=== PATIENT | male | born 1930 | race Caucasian/White ===

== ENCOUNTER 2018-06-27 11:45 | Inpatient (IN) | payer MEDICARE, OTHER ==
[2018-06-27 12:22] LABS: ARTERIAL BLOOD GAS HCO3 12.7 mmol/L (21-28); ARTERIAL BLOOD GAS O2 SAT 99.3 % (95-98); ARTERIAL BLOOD GAS PCO2 25 mm/Hg (35-45); ARTERIAL BLOOD GAS PH 7.22 (7.35-7.45); ARTERIAL BLOOD GAS PO2 342 mm/Hg (80-100)
[2018-06-27 12:29] LABS: ALB/GLOB RATIO 1.2 (1.0-2.1); ALBUMIN 3.6 g/dL (3.5-5.0); ALT/SGPT 43 U/L (21-72); AST/SGOT 82 U/L (17-59); BLOOD UREA NITROGEN 27 mg/dL (9-20); CALCIUM 8.7 mg/dl (8.6-10.4); GFR NON-AFRICAN AMERICAN 36
[2018-06-27 12:41] LABS: B-TYPE NATRIURETIC PEPTIDE 10400 pg/mL (0-900)
--- NOTE | 2018-06-27 12:55 | CP.PCM.CON ---
<Yosvany Corea - Last Filed: 06/27/18 17:56> History of Present Illness - History of Present Illness History of Present Illness: ICU Consult Note for Dr. Brian This is a 88 y o male with PMhx CHF, HTN, HLD, CVA (with resolvement of symptoms), s/p pacemaker (recently replaced 4 y ago), b/l carotid stenosis, hypothryoidism, prostate ca s/p tx in 2007, who presented to the ED [facility] s/p cardiac arrest. Reason for ICU consult was s/p cardiac arrest. Most of history obtained from family due to pts current clinical status. Per family, pt was not feeling well when he woke up this am, stated he felt short of breath, and was slurring his speech. Pt stated at time that he felt fine and went with family to his Cardiologists office, Dr. Perez for his scheduled appt. Family states that Dr. Perez examined pt and instructed that he go straight to the ED for further treatment. While pts family was driving pt to ED, pt suddenly became unresponsive in back seat of car. Pts family immediately pulled car to side of road and called 911. EMS came within 1 min to scene and initiated CPR and gave 2 shocks in field. Pt additionally arrested as per staff in ED after arrival, and ROSC was achieved again. Pt received epi x2, amiodarone x2, shock administered x4. On my exam in the ED pt was in A-fib on cardiac rhythm strip. Further ROS unobtainable due to pts current clinical status. Central line placed in ED. Pt admitted to ICU for further monitoring. Per family, they report that pt had cardiac arrest 2 years ago and was admitted to [facility] for 4 days for work-up, was told the reason for the episode was due to his heart failure. PMhx: as noted above PSurgHx: s/p pacemaker placement (recently replaced 4 y ago), s/p seeding for prostate ca Allergies: NKDA Home meds: Amiodarone 200 mg daily, Dutasteride 0.5 mg daily, Tamsulosin 0.4 mg daily, Lasix 20 mg daily, Pravastatin 40 mg daily, Synthroid 50 mcg daily, Entresto 24-26 mg daily, Niacin 1000 mg daily, Toprol XL 50 mg daily Fam hx: denies Soc hx: denies smoking, EtOH or illicit drug use PMD: Dr. Chambers Primary Live Out Nanny: Dr. Perez Pharmacy: [facility] Pharm[facility], [address] [place] Review of Systems - Review of Systems Systems not reviewed;Unavailable: Intubated Past Patient History - Past Social History Smoking Status: Never Smoked - CARDIAC Hx Heart Attack: Yes Hx Pacemaker: Yes - GENITOURINARY/GYNECOLOGICAL Hx Prostate Cancer: Yes - PSYCHIATRIC Hx Substance Use: No - SURGICAL HISTORY Hx Surgeries: Yes Other/Comment: PPM and Prostate Seed - ANESTHESIA Hx Anesthesia: Yes Hx Anesthesia Reactions: No Meds Allergies/Adverse Reactions: Allergies Allergy/AdvReac Type Severity Reaction Status Date / Time No Known Allergies Allergy Verified 06/27/18 11:47 - Medications Medications: Current Medications Norepinephrine Bitartrate 4 mg (/ Sodium Chloride) 254 mls @ 38.1 mls/hr IV .Q6H40M PRN; Protocol PRN Reason: TITRATE PER MD ORDER Physical Exam - Constitutional Appears: Non-toxic, No Acute Distress - Head Exam Head Exam: ATRAUMATIC, NORMOCEPHALIC - Eye Exam Eye Exam: EOMI, Normal appearance, PERRL - ENT Exam ENT Exam: Mucous Membranes Moist - Respiratory Exam Respiratory Exam: Clear to Auscultation Bilateral, NORMAL BREATHING PATTERN. absent: Rales, Rhonchi, Wheezes - Cardiovascular Exam Cardiovascular Exam: Irregular Rhythm, +S1, +S2. absent: Gallop, Rubs, Systolic Murmur - GI/Abdominal Exam GI & Abdominal Exam: Normal Bowel Sounds, Soft. absent: Distended, Organomegaly, Tenderness - Extremities Exam Extremities exam: Positive for: normal capillary refill, pedal pulses present. Negative for: pedal edema - Neurological Exam Additional comments: Intubated - Skin Skin Exam: Dry, Intact, Warm Results - Labs Result Diagrams: 06/27/18 12:55 06/27/18 12:08 Labs: Laboratory Results - last 24 hr 06/27/18 06/27/18 06/27/18 11:47 12:08 12:16 Puncture Site Fem/l pCO2 25 L pO2 342 H HCO3 12.7 L ABG pH 7.22 L ABG Total CO2 11.0 L ABG O2 Saturation 99.3 H ABG Base Excess -15.8 L Tristian Test Na ABG Potassium 4.1 A-a O2 Difference 340.0 Respiratory Index 1.0 Glucose 237 H Lactate 8.2 H* Mechanical Rate 14 FiO2 100.0 Tidal Volume 500 PEEP 5 Crit Value Called To Er dr jones Crit Value Called By Bryant herrera ob/gyn physician Crit Value Read Back Y Blood Gas Notified Time 1215 Sodium 140 138.0 Potassium 4.1 Chloride 112 H 107.0 Carbon Dioxide 14 L Anion Gap 19 BUN 27 H Creatinine 1.8 H Est GFR ( Amer) 44 Est GFR (Non-Af Amer) 36 POC Glucose (mg/dL) 182 H Random Glucose 168 H D Calcium 8.7 Total Bilirubin 0.9 AST 82 H ALT 43 Alkaline Phosphatase 80 Troponin I < 0.0120 NT-Pro-B Natriuret Pep 39926 H Total Protein 6.5 Albumin 3.6 Globulin 3.0 Albumin/Globulin Ratio 1.2 Arterial Blood Potassium 4.1 Assessment & Plan - Assessment and Plan (Free Text) Assessment: This is a 88 y o male with PMhx CHF, HTN, HLD, CVA (with resolvement of symptoms), s/p pacemaker (recently replaced 4 y ago), b/l carotid stenosis, hypothryoidism, prostate ca s/p tx in 2007, who presented to the ED [facility] s/p cardiac arrest. Reason for ICU consult is s/p cardiac arrest. Admitted to ICU for further monitoring. ABG on admission demonstrating metabolic acidosis, lactate elevated. Cardiology and Neurology consulted. CT head on admission demonstrates no acute findings. Plan to initiate Code Freeze protocol. Plan: Neuro: -Intubated currently -Hx CVA -CT head on admission: Stable unenhanced CT including diffuse cerebral atrophy, chronic microangiopathy and chronic lobar infarction L frontal lobe. No suspicious acute intracranial findings identified in the interval. No significant interval change compared to prior CT 11/08/18. -Neurology, Dr. Zaragoza, consulted, recs appreciated -Video EEG ordered -Repeat head CT tomorrow after completion of Code Freeze Cardio: -S/p Cardiac Arrest -R/o arrhythmia, heart failure, NE, hypovolemia, valvular disease as etiologies for presentation -Acidotic on admission, started on Bicarb drip -Code Freeze protocol -Pt hypotensive, A-fib noted on monitoring specialist after ROSC achieved -Currently intubated, sedation held 2/2 hypotension -Currently on Levophed, Phenylephrine and Dopamine drips -Amiodarone drip -Neg trop on admission, repeat ROMIs pending -Cardiology (Dr. Mooney) consulted, recs appreciated -S/p central line placement -BNP elevated on admission -Stat Echo ordered, f/u results -Faxed in request for pt's medical records from [facility], consent obtained from pt's at bedside -Hx CHF -Home med Entresto held on admission 2/2 hypotension -BNP elevated on admission -CXR on admission: Multiple R rib fractures identified inclulding right 4th, 5th, 6th and 7th ribs with associated trace R pneumothorax and localized chest wall/pulmonary contusion. L chest appears clear. Cardiomegaly without pulmonary vascular congestion, stable. ET tube in good apparent position with prior AICD/pacemaker unchanged. -Hx pacemaker -Pt's family to bring in pacemaker card, will contact child attendant Hx HLD -Lipid panel pending -Pravastatin held on admission Hx HTN -Home BP meds held on admission 2/2 hypotension -On pressor therapy Pulm: -Currently intubated, sedation held 2/2 hypotension -Vent settings as ordered -Presented with metabolic acidosis on admission, started on Bicarb drip -Cont to monitor GI: -NPO -No acute issues at this time Renal: -BUN/Cr 27/1.8 -Hx prostate ca s/p seeding and XRT in remission -Home meds Dutasteride, Tamsulosin held on admission -Trend I's/O's Heme: -H/H 10.5/34.3 -Leukocytosis present, may be reactive 2/2 cardiac arrest and CPR, cont to trend Endo: -Hx hypothyroidism -Synthroid held on admission -TSH ordered PPX: -SCD -GI ppx not indicated at this time -Full Code status -Palliative Care consulted re. goals of care discussion, recs appreciated. Pt seen, examined with, and plan discussed with Dr. Brian, attending physician. Yosvany Corea DO PGY-1, Process Development Manager Pager #[phone] <Shree Brian - Last Filed: 06/27/18 18:13> Meds - Medications Medications: Current Medications Norepinephrine Bitartrate 4 mg (/ Sodium Chloride) 254 mls @ 38.1 mls/hr IV .Q6H40M PRN; Protocol PRN Reason: TITRATE PER MD ORDER Last Titration: 06/27/18 15:45 Dose: 20 mcg/min, 76.2 mls/hr Amiodarone HCl 900 mg/ (Dextrose) 500 mls @ 16.67 mls/hr IV .Q24H GINI; Protocol Stop: 06/28/18 18:00 Dopamine HCl/Dextrose (Dopamine 400mg/250ml D5w) 400 mg in 250 mls @ 5.688 mls/hr IV .Q24H PRN; Protocol PRN Reason: TITRATE PER MD ORDER Last Titration: 06/27/18 15:52 Dose: 20 mcg/kg/min, 56.881 mls/hr Phenylephrine HCl 30 mg/ (Sodium Chloride) 253 mls @ 10.12 mls/hr IV .Q24H PRN; Protocol PRN Reason: TITRATE PER MD ORDER Last Titration: 06/27/18 18:01 Dose: 50 mcg/min, 25.3 mls/hr Amiodarone HCl 360 mg/ (Dextrose) 207.2 mls @ 33.3 mls/hr IV .Q6H14M GINI Stop: 06/27/18 19:00 Last Admin: 06/27/18 16:15 Dose: 33.3 mls/hr Sodium Bicarbonate 75 meq/ (Sodium Chloride) 1,075 mls @ 75 mls/hr IV .[id number] [facility] Last Admin: 06/27/18 17:29 Dose: 75 mls/hr Results - Vital Signs Recent Vital Signs: Last Vital Signs Temp 90.3 F L 06/27/18 17:20 Pulse 79 06/27/18 17:50 Resp 20 06/27/18 17:26 BP 87/47 L 06/27/18 17:48 Pulse Ox 100 06/27/18 17:55 - Labs Result Diagrams: 06/27/18 12:55 06/27/18 12:08 Labs: Laboratory Results - last 24 hr 06/27/18 06/27/18 06/27/18 11:47 12:08 12:16 WBC RBC Hgb Hct MCV MCH MCHC RDW Plt Count MPV Neut % (Auto) Lymph % (Auto) Calvert % (Auto) Eos % (Auto) Baso % (Auto) Neut # (Auto) Lymph # (Auto) Calvert # (Auto) Eos # (Auto) Baso # (Auto) PT INR APTT Puncture Site Fem/l pCO2 25 L pO2 342 H HCO3 12.7 L ABG pH 7.22 L ABG Total CO2 11.0 L ABG O2 Saturation 99.3 H ABG Base Excess -15.8 L Tristian Test Na ABG Potassium 4.1 VBG pH VBG pCO2 VBG HCO3 VBG Total CO2 VBG O2 Sat (Calc) VBG Base Excess VBG Potassium A-a O2 Difference 340.0 Respiratory Index 1.0 Glucose 237 H Lactate 8.2 H* Mechanical Rate 14 FiO2 100.0 Tidal Volume 500 PEEP 5 Crit Value Called To Er dr jones Crit Value Called By Bryant herrera ob/gyn physician Crit Value Read Back Y Blood Gas Notified Time 1215 Sodium 140 138.0 Potassium 4.1 Chloride 112 H 107.0 Carbon Dioxide 14 L Anion Gap 19 BUN 27 H Creatinine 1.8 H Est GFR ( Amer) 44 Est GFR (Non-Af Amer) 36 POC Glucose (mg/dL) 182 H Random Glucose 168 H D Calcium 8.7 Total Bilirubin 0.9 AST 82 H ALT 43 Alkaline Phosphatase 80 Troponin I < 0.0120 NT-Pro-B Natriuret Pep 88305 H Total Protein 6.5 Albumin 3.6 Globulin 3.0 Albumin/Globulin Ratio 1.2 Arterial Blood Potassium 4.1 Venous Blood Potassium RPR Titer RPR Hep Bs Antigen Hep B Core IgM Ab 06/27/18 06/27/18 06/27/18 12:55 12:55 16:38 WBC 11.1 H D RBC 3.44 L Hgb 10.5 L D Hct 34.3 L MCV 99.9 H D MCH 30.5 MCHC 30.5 L RDW 16.5 H Plt Count 108 L D MPV 9.7 Neut % (Auto) 52.0 Lymph % (Auto) 38.0 Calvert % (Auto) 10.0 Eos % (Auto) 1.0 Baso % (Auto) 0.0 Neut # (Auto) 5.8 Lymph # (Auto) 4.2 Calvert # (Auto) 1.1 H Eos # (Auto) 0.0 Baso # (Auto) 0.0 PT 18.5 H INR 1.7 APTT 45 H Puncture Site pCO2 pO2 45 HCO3 ABG pH ABG Total CO2 ABG O2 Saturation ABG Base Excess Tristian Test ABG Potassium VBG pH 7.03 L* VBG pCO2 56 VBG HCO3 11.2 VBG Total CO2 16.5 L VBG O2 Sat (Calc) 71.9 H VBG Base Excess -16.2 L VBG Potassium 4.3 A-a O2 Difference Respiratory Index Glucose 256 H Lactate 7.0 H* Mechanical Rate FiO2 100.0 Tidal Volume PEEP 5 Crit Value Called To Dr brian Crit Value Called By Sacha reyna Crit Value Read Back Y Blood Gas Notified Time 1642 Sodium 141.0 Potassium Chloride 108.0 H Carbon Dioxide Anion Gap BUN Creatinine Est GFR ( Amer) Est GFR (Non-Af Amer) POC Glucose (mg/dL) Random Glucose Calcium Total Bilirubin AST ALT Alkaline Phosphatase Troponin I NT-Pro-B Natriuret Pep Total Protein Albumin Globulin Albumin/Globulin Ratio Arterial Blood Potassium Venous Blood Potassium 4.3 RPR Titer RPR Hep Bs Antigen Hep B Core IgM Ab 06/27/18 06/27/18 17:00 17:00 WBC RBC Hgb Hct MCV MCH MCHC RDW Plt Count MPV Neut % (Auto) Lymph % (Auto) Calvert % (Auto) Eos % (Auto) Baso % (Auto) Neut # (Auto) Lymph # (Auto) Calvert # (Auto) Eos # (Auto) Baso # (Auto) PT INR APTT Puncture Site pCO2 pO2 HCO3 ABG pH ABG Total CO2 ABG O2 Saturation ABG Base Excess Tristian Test ABG Potassium VBG pH VBG pCO2 VBG HCO3 VBG Total CO2 VBG O2 Sat (Calc) VBG Base Excess VBG Potassium A-a O2 Difference Respiratory Index Glucose Lactate Mechanical Rate FiO2 Tidal Volume PEEP Crit Value Called To Crit Value Called By Crit Value Read Back Blood Gas Notified Time Sodium Potassium Chloride Carbon Dioxide Anion Gap BUN Creatinine Est GFR ( Amer) Est GFR (Non-Af Amer) POC Glucose (mg/dL) Random Glucose Calcium Total Bilirubin AST ALT Alkaline Phosphatase Troponin I NT-Pro-B Natriuret Pep Total Protein Albumin Globulin Albumin/Globulin Ratio Arterial Blood Potassium Venous Blood Potassium RPR Titer 1:2 H RPR Reactive H Hep Bs Antigen Negative Hep B Core IgM Ab Negative Attending/Attestation - Attestation I have personally seen and examined this patient.: Yes I have fully participated in the care of the patient.: Yes I have reviewed all pertinent clinical information: Yes Notes (Text): 06/27/18 18:12 Patient seen and examined 88-year-old male with extensive medical history was admitted to intensive care unit post cardiac arrest and resuscitation Started on amiodarone drip Therapeutic hypothermia On multiple pressors for hypotension/shock Echocardiogram noted with aortic stenosis Ventilator support and follow-up ABG Bicarb drip for acidosis Prognosis poor Palliative consult
[2018-06-27 13:00] LABS: MEAN CORPUSCULAR HEMOGLOBIN 30.5 pg (27.0-31.0); MEAN CORPUSCULAR HGB CONC 30.5 g/dL (33.0-37.0); MEAN PLATELET VOLUME 9.7 fL (7.2-11.7); RBC 3.44 Mil/uL (4.40-5.90); RED CELL DISTRIBUTION WIDTH 16.5 % (11.5-14.5)
[2018-06-27 13:10] LABS: HEMOGLOBIN 10.5 g/dL (12.0-18.0); INR 1.7; MEAN CELL VOLUME 99.9 fL (80.0-94.0); PROTHROMBIN TIME 18.5 SECONDS (9.7-12.2); WHITE BLOOD COUNT 11.1 K/uL (4.8-10.8)
[2018-06-27 13:50] LABS: LYMPH # 4.2 K/uL (1.0-4.3); MONO # 1.1 K/uL (0.0-0.8); NEUT # 5.8 K/uL (1.8-7.0)
--- NOTE | 2018-06-27 13:59 | CP.PCM.HP ---
<Yosvany Corea - Last Filed: 06/27/18 17:27> History of Present Illness - History of Present Illness History of Present Illness: Medicine History and Physical For Hospitalist Service, Dr. Cuevas This is a 88 y o male with PMhx CHF, HTN, HLD, CVA (with resolvement of symptoms), s/p pacemaker (recently replaced 4 y ago), b/l carotid stenosis, hypothryoidism, prostate ca s/p tx in 2007, who presented to the ED [facility] s/p cardiac arrest. Most of history obtained from family due to pts current clinical status. Per family, pt was not feeling well when he woke up this am, stated he felt short of breath, and was slurring his speech. Pt stated at time that he felt fine and went with family to his Cardiologists office, Dr. Perez for his scheduled appt. Family states that Dr. Perez examined pt and instructed that he go straight to the ED for further treatment. While pts family was driving pt to ED, pt suddenly became unresponsive in back seat of car. Pts family immediately pulled car to side of road and called 911. EMS came within 1 min to scene and initiated CPR and gave 2 shocks in field. Pt additionally arrested as per staff in ED after arrival, and ROSC was achieved again. Pt rec eived epi x2, amiodarone x2, shock administered x4. On my exam in the ED pt was in A-fib on cardiac rhythm strip. Further ROS unobtainable due to pts current clinical status. Central line placed in ED. Pt admitted to ICU for further monitoring. Per family, they report that pt had cardiac arrest 2 years ago and was admitted to [facility] for 4 days for work-up, was told the reason for the episode was due to his heart failure. PMhx: as noted above PSurgHx: s/p pacemaker placement (recently replaced 4 y ago), s/p seeding for prostate ca Allergies: NKDA Home meds: Amiodarone 200 mg daily, Dutasteride 0.5 mg daily, Tamsulosin 0.4 mg daily, Lasix 20 mg daily, Pravastatin 40 mg daily, Synthroid 50 mcg daily, Entresto 24-26 mg daily, Niacin 1000 mg daily, Toprol XL 50 mg daily Fam hx: denies Soc hx: denies smoking, EtOH or illicit drug use PMD: Dr. Chambers Primary Sales Broker: Dr. Perez Pharmacy: [facility] Pharm[facility], [place] Present on Admission - Present on Admission Any Indicators Present on Admission: No History of DVT/PE: No History of Uncontrolled Diabetes: No Urinary Catheter: No Decubitus Ulcer Present: No History Surgical Site Infection Following: None Review of Systems - Review of Systems Systems not reviewed;Unavailable: Intubated Past Patient History - Past Social History Smoking Status: Never Smoked - CARDIAC Hx Heart Attack: Yes Hx Pacemaker: Yes - GENITOURINARY/GYNECOLOGICAL Hx Prostate Cancer: Yes - PSYCHIATRIC Hx Substance Use: No - SURGICAL HISTORY Hx Surgeries: Yes Other/Comment: PPM and Prostate Seed - ANESTHESIA Hx Anesthesia: Yes Hx Anesthesia Reactions: No Meds Allergies/Adverse Reactions: Allergies Allergy/AdvReac Type Severity Reaction Status Date / Time No Known Allergies Allergy Verified 06/27/18 11:47 Physical Exam - Constitutional Appears: Non-toxic, No Acute Distress - Head Exam Head Exam: ATRAUMATIC, NORMOCEPHALIC - Eye Exam Eye Exam: Normal appearance, PERRL - ENT Exam ENT Exam: Mucous Membranes Moist - Respiratory Exam Respiratory Exam: Clear to Auscultation Bilateral, NORMAL BREATHING PATTERN. absent: Rales, Rhonchi, Wheezes - Cardiovascular Exam Cardiovascular Exam: Irregular Rhythm, +S1, +S2. absent: Gallop, Rubs, Systolic Murmur - GI/Abdominal Exam GI & Abdominal Exam: Normal Bowel Sounds, Soft. absent: Distended, Organomegaly, Tenderness - Extremities Exam Extremities exam: Positive for: normal capillary refill, pedal pulses present. Negative for: pedal edema - Neurological Exam Additional comments: Intubated - Skin Skin Exam: Dry, Intact, Warm Results - Vital Signs Recent Vital Signs: Last Vital Signs Temp Pulse 61 06/27/18 12:11 Resp BP Pulse Ox - Labs Result Diagrams: 06/27/18 12:55 06/27/18 12:08 Labs: Laboratory Results - last 24 hr 06/27/18 06/27/18 06/27/18 11:47 12:08 12:16 WBC RBC Hgb Hct MCV MCH MCHC RDW Plt Count MPV Neut % (Auto) Lymph % (Auto) [place] % (Auto) Eos % (Auto) Baso % (Auto) Neut # (Auto) Lymph # (Auto) [place] # (Auto) Eos # (Auto) Baso # (Auto) PT INR APTT Puncture Site Fem/l pCO2 25 L pO2 342 H HCO3 12.7 L ABG pH 7.22 L ABG Total CO2 11.0 L ABG O2 Saturation 99.3 H ABG Base Excess -15.8 L Tristian Test Na ABG Potassium 4.1 A-a O2 Difference 340.0 Respiratory Index 1.0 Glucose 237 H Lactate 8.2 H* Mechanical Rate 14 FiO2 100.0 Tidal Volume 500 PEEP 5 Crit Value Called To Er dr jones Crit Value Called By Bryant herrera senior clinical research associate Crit Value Read Back Y Blood Gas Notified Time 1215 Sodium 140 138.0 Potassium 4.1 Chloride 112 H 107.0 Carbon Dioxide 14 L Anion Gap 19 BUN 27 H Creatinine 1.8 H Est GFR ( Amer) 44 Est GFR (Non-Af Amer) 36 POC Glucose (mg/dL) 182 H Random Glucose 168 H D Calcium 8.7 Total Bilirubin 0.9 AST 82 H ALT 43 Alkaline Phosphatase 80 Troponin I < 0.0120 NT-Pro-B Natriuret Pep 98677 H Total Protein 6.5 Albumin 3.6 Globulin 3.0 Albumin/Globulin Ratio 1.2 Arterial Blood Potassium 4.1 06/27/18 06/27/18 12:55 12:55 WBC 11.1 H D RBC 3.44 L Hgb 10.5 L D Hct 34.3 L MCV 99.9 H D MCH 30.5 MCHC 30.5 L RDW 16.5 H Plt Count 108 L D MPV 9.7 Neut % (Auto) 52.0 Lymph % (Auto) 38.0 [place] % (Auto) 10.0 Eos % (Auto) 1.0 Baso % (Auto) 0.0 Neut # (Auto) 5.8 Lymph # (Auto) 4.2 [place] # (Auto) 1.1 H Eos # (Auto) 0.0 Baso # (Auto) 0.0 PT 18.5 H INR 1.7 APTT 45 H Puncture Site pCO2 pO2 HCO3 ABG pH ABG Total CO2 ABG O2 Saturation ABG Base Excess Tristian Test ABG Potassium A-a O2 Difference Respiratory Index Glucose Lactate Mechanical Rate FiO2 Tidal Volume PEEP Crit Value Called To Crit Value Called By Crit Value Read Back Blood Gas Notified Time Sodium Potassium Chloride Carbon Dioxide Anion Gap BUN Creatinine Est GFR ( Amer) Est GFR (Non-Af Amer) POC Glucose (mg/dL) Random Glucose Calcium Total Bilirubin AST ALT Alkaline Phosphatase Troponin I NT-Pro-B Natriuret Pep Total Protein Albumin Globulin Albumin/Globulin Ratio Arterial Blood Potassium Assessment & Plan - Assessment and Plan (Free Text) Assessment: This is a 88 y o male with PMhx CHF, HTN, HLD, CVA (with resolvement of symptoms), s/p pacemaker (recently replaced 4 y ago), b/l carotid stenosis, hypothryoidism, prostate ca s/p tx in 2007, who presented to the ED [facility] s/p cardiac arrest. Admitted to ICU for further monitoring. ABG on admission demonstrating metabolic acidosis, lactate elevated. Cardiology and Neurology consulted. CT head on admission demonstrates no acute findings. Plan to initiate Code Freeze protocol. Plan: S/p Cardiac Arrest -R/o arrhythmia, heart failure, NV, hypovolemia, valvular disease as etiologies for presentation -Acidotic on admission, started on Bicarb drip -Code Freeze protocol -Pt hypotensive, A-fib noted on pvc monitor after ROSC achieved -Currently intubated, sedation held 2/2 hypotension -Currently on Levophed, Phenylephrine and Dopamine drips -Amiodarone drip -Neg trop on admission, repeat ROMIs pending -Cardiology (Dr. Mooney) consulted, recs appreciated -S/p central line placement -BNP elevated on admission -Stat Echo ordered, f/u results -Faxed in request for pt's medical records from [facility], consent obtained from pt's at bedside Hx CHF -Home med Entresto held on admission 2/2 hypotension -BNP elevated on admission -CXR on admission: Multiple R rib fractures identified inclulding right 4th, 5th, 6th and 7th ribs with associated trace R pneumothorax and localized chest wall/pulmonary contusion. L chest appears clear. Cardiomegaly without pulmonary vascular congestion, stable. ET tube in good apparent position with prior AICD/pacemaker unchanged. Hx pacemaker -Pt's family to bring in pacemaker card, will contact garageman Hx HTN -Home BP meds held on admission 2/2 hypotension -On pressor therapy Hx hypothyroidism -Synthroid held on admission -TSH ordered Hx prostate ca s/p seeding and XRT in remission -Home meds Dutasteride, Tamsulosin held on admission Hx HLD -Lipid panel pending -Pravastatin held on admission Hx CVA -CT head on admission: Stable unenhanced CT including diffuse cerebral atrophy, chronic microangiopathy and chronic lobar infarction L frontal lobe. No suspicious acute intracranial findings identified in the interval. No significant interval change compared to prior CT 11/08/18. -Neurology, Dr. Zaragoza, consulted, recs appreciated -Video EEG ordered -Repeat head CT tomorrow after completion of Code Freeze PPX: -SCD -GI ppx not indicated at this time -Full Code status -Palliative Care consulted re. goals of care discussion, recs appreciated. Pt seen, examined with, and plan discussed with Dr. Cuevas, attending physician. Yosvany Corea DO PGY-1, [employer] Pager #[phone] <Sadi Cuevas - Last Filed: 06/27/18 17:44> Results - Vital Signs Recent Vital Signs: Last Vital Signs Temp 94.4 F L 06/27/18 16:00 Pulse 79 06/27/18 17:00 Resp 24 06/27/18 16:25 BP 81/37 L 06/27/18 16:55 Pulse Ox 100 06/27/18 17:00 - Labs Result Diagrams: 06/27/18 12:55 06/27/18 12:08 Labs: Laboratory Results - last 24 hr 06/27/18 06/27/18 06/27/18 11:47 12:08 12:16 WBC RBC Hgb Hct MCV MCH MCHC RDW Plt Count MPV Neut % (Auto) Lymph % (Auto) [place] % (Auto) Eos % (Auto) Baso % (Auto) Neut # (Auto) Lymph # (Auto) [place] # (Auto) Eos # (Auto) Baso # (Auto) PT INR APTT Puncture Site Fem/l pCO2 25 L pO2 342 H HCO3 12.7 L ABG pH 7.22 L ABG Total CO2 11.0 L ABG O2 Saturation 99.3 H ABG Base Excess -15.8 L Tristian Test Na ABG Potassium 4.1 VBG pH VBG pCO2 VBG HCO3 VBG Total CO2 VBG O2 Sat (Calc) VBG Base Excess VBG Potassium A-a O2 Difference 340.0 Respiratory Index 1.0 Glucose 237 H Lactate 8.2 H* Mechanical Rate 14 FiO2 100.0 Tidal Volume 500 PEEP 5 Crit Value Called To Er dr jones Crit Value Called By Bryant herrera crt Crit Value Read Back Y Blood Gas Notified Time 1215 Sodium 140 138.0 Potassium 4.1 Chloride 112 H 107.0 Carbon Dioxide 14 L Anion Gap 19 BUN 27 H Creatinine 1.8 H Est GFR ( Amer) 44 Est GFR (Non-Af Amer) 36 POC Glucose (mg/dL) 182 H Random Glucose 168 H D Calcium 8.7 Total Bilirubin 0.9 AST 82 H ALT 43 Alkaline Phosphatase 80 Troponin I < 0.0120 NT-Pro-B Natriuret Pep 45678 H Total Protein 6.5 Albumin 3.6 Globulin 3.0 Albumin/Globulin Ratio 1.2 Arterial Blood Potassium 4.1 Venous Blood Potassium 06/27/18 06/27/18 06/27/18 12:55 12:55 16:38 WBC 11.1 H D RBC 3.44 L Hgb 10.5 L D Hct 34.3 L MCV 99.9 H D MCH 30.5 MCHC 30.5 L RDW 16.5 H Plt Count 108 L D MPV 9.7 Neut % (Auto) 52.0 Lymph % (Auto) 38.0 [place] % (Auto) 10.0 Eos % (Auto) 1.0 Baso % (Auto) 0.0 Neut # (Auto) 5.8 Lymph # (Auto) 4.2 [place] # (Auto) 1.1 H Eos # (Auto) 0.0 Baso # (Auto) 0.0 PT 18.5 H INR 1.7 APTT 45 H Puncture Site pCO2 pO2 45 HCO3 ABG pH ABG Total CO2 ABG O2 Saturation ABG Base Excess Tristian Test ABG Potassium VBG pH 7.03 L* VBG pCO2 56 VBG HCO3 11.2 VBG Total CO2 16.5 L VBG O2 Sat (Calc) 71.9 H VBG Base Excess -16.2 L VBG Potassium 4.3 A-a O2 Difference Respiratory Index Glucose 256 H Lactate 7.0 H* Mechanical Rate FiO2 100.0 Tidal Volume PEEP 5 Crit Value Called To Dr brian Crit Value Called By Sacha reyna Crit Value Read Back Y Blood Gas Notified Time 1642 Sodium 141.0 Potassium Chloride 108.0 H Carbon Dioxide Anion Gap BUN Creatinine Est GFR ( Amer) Est GFR (Non-Af Amer) POC Glucose (mg/dL) Random Glucose Calcium Total Bilirubin AST ALT Alkaline Phosphatase Troponin I NT-Pro-B Natriuret Pep Total Protein Albumin Globulin Albumin/Globulin Ratio Arterial Blood Potassium Venous Blood Potassium 4.3 Attending/Attestation - Attestation I have personally seen and examined this patient.: Yes I have fully participated in the care of the patient.: Yes I have reviewed all pertinent clinical information: Yes Notes (Text): 06/27/18 17:33 Medical attending: Patient was seen and examined by me with the medical surgery nurse The patient remains intubated at this time with minimal response. I spoke with three of the patient's family members at bedside including his as well as one daughter and a step daughter and explained to them the prognosis at this time was not good. Per discussion with the family the patient woke up and looked very ill to them including shortness of breath, gasping for air - and the patient insisted on seeing his lacquerer. When the family brought the patient to the lacquerer he was seen and because of his breathing the lacquerer urged the family that he needed to go to the hospital immediately. The family had only driven one or two minutes when they noticed he lost consciousness and stopped breathing and they pulled over and called for EMS. They report the home health cna came immediately and started chest compressions and he required intubation. It seems that at some point during the ambulance transport he regained a pulse and blood pressure since the nursing staff in the ER explained he had a pulse and blood pressure on arrival - however shortly t hereafter lost pulse and BP again and they again had to resume CPR. He was started on levophed as well as dopamine and amiodarone as he was observed to have episodes of ventricular tachycardia by the ER phsycian According to the Hetal she states the patient has a pacer/defibillator for the past 4 years and before that had another device for at least 9 years. The explains there is a history of prostate CA, history of CVA, she believes NV, CHF According to the and daughters, the patient normally is able to walk well and was walking this morning despite being very short of breath I asked them about code status - and they are not sure at this time. I explained to them repeatedly that prognosis is not good and that there is a high liklehood he may have more episodes of cardiac arrest overnight. thank you Sadi Cuevas
--- NOTE | 2018-06-27 14:37 | RAD ---
Date of service: 06/27/2018 HISTORY: cardiac arrest COMPARISON: Chest radiographs 04/24/2014. TECHNIQUE: 1 view obtained. FINDINGS: LUNGS: Endotracheal tube deployed, terminating 3 cm above the don. AICD/pacemaker reiterated. Contusion is suggested at the right chest wall and/or lateral right lung left chest grossly clear. PLEURA: Limited right lateral pneumothorax is likely present, less than 10 percent. No left pneumothorax. Trace right pleural effusion evident. None at the left. CARDIOVASCULAR: Calcific atherosclerotic changes are seen related to the thoracic aorta. AICD/pacemaker reiterated with external pacemaker now placed. Stable cardiomegaly. No pulmonary vascular congestion. OSSEOUS STRUCTURES: Multiple right lateral rib fractures including the right 4th, 5th, 6th and 7th ribs. VISUALIZED UPPER ABDOMEN: Normal. OTHER FINDINGS: None. IMPRESSION: Multiple right rib fractures identified including right 4th, 5th, 6th and 7th ribs with associated trace right pneumothorax and localized chest wall/pulmonary contusion. Left chest appears clear. Cardiomegaly without pulmonary vascular congestion, stable. ET tube in good apparent position with prior AICD/pacemaker unchanged.
--- NOTE | 2018-06-27 14:41 | CT ---
Date of service: 06/27/2018 PROCEDURE: CT HEAD WITHOUT CONTRAST. HISTORY: s/p cardiac arrest COMPARISON: Noncontrast head CT 11/08/2017. TECHNIQUE: Axial computed tomography images were obtained through the head/brain without intravenous contrast. Radiation dose: Total exam DLP = 1363.7 mGy-cm. This CT exam was performed using one or more of the following dose reduction techniques: Automated exposure control, adjustment of the mA and/or kV according to patient size, and/or use of iterative reconstruction technique. FINDINGS: HEMORRHAGE: No intracranial hemorrhage. BRAIN: Age-appropriate diffuse cerebral atrophy chronic microangiopathy are reiterated as well as chronic infarct left frontal lobe. Good preservation of corticomedullary margins with no interval cortical lucency appreciated throughout. No suspicious extra-axial fluid collection identified. VENTRICLES: Unremarkable. No hydrocephalus. CALVARIUM: No fracture identified. Extensive bilateral cavernous ICA calcified atherosclerotic plaque identified. PARANASAL SINUSES: Unremarkable as visualized. No significant inflammatory changes. MASTOID AIR CELLS: Unremarkable as visualized. No inflammatory changes. OTHER FINDINGS: None. IMPRESSION: Stable unenhanced head CT including diffuse cerebral atrophy, chronic microangiopathy and chronic lobar infarction left frontal lobe. No suspicious acute intracranial findings identified in the interval. No significant interval change compared prior CT 11/08/2017.
[2018-06-27 15:03] VITALS: BMI 26.9
[2018-06-27] MEDS ORDERED: Sodium Chloride 0.9% 500 ML IV ONE (15:38)
[2018-06-27] MEDS: DOPamine 400mg/250ml D5W 400 MG/250 ML BAG IV PRN ×3 (15:52→23:08)
--- NOTE | 2018-06-27 15:57 | CP.PCM.CON ---
History of Present Illness - History of Present Illness History of Present Illness: PGY-1 Neurology Consult Note for Dr. Zaragoza. Consulted by Hospitalist and ICU, Drs. Cuevas and Emigdio, for Hx CVA and possible Anoxic Brain Injury Patient is a 88 year old male with PMHx of HTN, CHF s/p pacemaker, prostate CA s/p seeding, HLD, and bilateral carotid stenosis was sent to the ED per outpatient hand bunch maker during routine visit this morning. Per family, he was at baseline prior to his appointment, became short of breath, and went into cardiac arrest in the backseat en route to the ED. EMS arrived and was able to achieve R OSC and transport to the hospital where he arrested again. He was transferred to the ICU after intubation and placed on Code Freeze. Neurology was consulted for possible anoxic brain injury. He does have a history of CVA. Family does not recall when it was. They report he underwent PT and rehab and is without any deficits. PMH: HTN, CHF s/p pacemaker, prostate CA s/p seeding, HLD, bilateral carotid stenosis, CVA without deficits Med: Amiodarone 200mg po daily, Pravastatin 40mg po HS, Niacin 1000mg po daily, Entresto 24/26mg po BID, Tamsulosin 0.4mg po daily, metoprolol 75mg po daily, dutasteride 0.5mg po daily All: NKDA FamHx: brother from [place] @ 37 SxHx: Pacemaker placement 2014, prostate seeding 2007 SocHx: Denies tobacco, alcohol, illicit drug use. Lives at home with , daugh ter, and son-in- law. Retired temporary staff accountant. Review of Systems - Review of Systems Systems not reviewed;Unavailable: Acuity of Condition, Intubated Past Patient History - Past Social History Smoking Status: Never Smoked Alcohol: None Drugs: Denies - CARDIAC Hx Heart Attack: Yes Hx Pacemaker: Yes - GENITOURINARY/GYNECOLOGICAL Hx Prostate Cancer: Yes - PSYCHIATRIC Hx Substance Use: No - SURGICAL HISTORY Hx Surgeries: Yes Other/Comment: PPM and Prostate Seed - ANESTHESIA Hx Anesthesia: Yes Hx Anesthesia Reactions: No Meds Allergies/Adverse Reactions: Allergies Allergy/AdvReac Type Severity Reaction Status Date / Time No Known Allergies Allergy Verified 06/27/18 11:47 - Medications Medications: Current Medications Norepinephrine Bitartrate 4 mg (/ Sodium Chloride) 254 mls @ 38.1 mls/hr IV .Q6H40M PRN; Protocol PRN Reason: TITRATE PER MD ORDER Last Admin: 06/27/18 15:30 Dose: 10 mcg/min, 38.1 mls/hr Amiodarone HCl 900 mg/ (Dextrose) 500 mls @ 33.33 mls/hr IV .Q15H1M GINI; Protocol Stop: 06/27/18 22:00 Amiodarone HCl 900 mg/ (Dextrose) 500 mls @ 16.67 mls/hr IV .Q24H GINI; Protocol Stop: 06/28/18 18:00 Dopamine HCl/Dextrose (Dopamine 400mg/250ml D5w) 400 mg in 250 mls @ 5.688 mls/hr IV .Q24H PRN; Protocol PRN Reason: TITRATE PER MD ORDER Last Admin: 06/27/18 15:52 Dose: 2 mcg/kg/min, 5.688 mls/hr Sodium Chloride (Sodium Chloride 0.9%) 500 mls @ 500 mls/hr IV .Q1H ONE Stop: 06/27/18 16:37 Last Admin: 06/27/18 15:40 Dose: 500 mls/hr Phenylephrine HCl 30 mg/ (Sodium Chloride) 253 mls @ 10.12 mls/hr IV .Q24H PRN; Protocol PRN Reason: TITRATE PER MD ORDER Physical Exam - Constitutional Appears: No Acute Distress - Head Exam Head Exam: ATRAUMATIC, NORMOCEPHALIC - Eye Exam Eye Exam: PERRL Pupil Exam: PERRL Additional comments: sluggishly reactive bilaterally - ENT Exam ENT Exam: Mucous Membranes Dry - Respiratory Exam Additional comments: intubated on PRVC - Cardiovascular Exam Cardiovascular Exam: REGULAR RHYTHM, +S1, +S2 Additional comments: hypotensive on 3 pressors - GI/Abdominal Exam GI & Abdominal Exam: Normal Bowel Sounds, Soft - Extremities Exam Extremities exam: Negative for: normal capillary refill - Neurological Exam Additional comments: aphasic not spontaneously opening eyes minimally reactive to pain moving upper extremities positive gag and cough reflex on suctioning - Expanded Neurological Exam Expanded Cranial nerves: EOM's Intact: Normal (slow) DTR: Patellar Left: 1+, Patellar Right: 1+ Coma Scale Eye Opening: To Pain Coma Scale Motor Response: Extensor Response Coma Scale Verbal: None Coma Scale Total: 5 - Skin Additional comments: cool to touch 2/2 therapeutic hypothermia Results - Vital Signs Recent Vital Signs: Last Vital Signs Temp 94.7 F L 06/27/18 15:30 Pulse 62 06/27/18 15:52 Resp 23 06/27/18 15:52 BP 76/30 L 06/27/18 15:52 Pulse Ox 100 06/27/18 15:52 - Labs Result Diagrams: 06/27/18 12:55 06/27/18 12:08 Labs: Laboratory Results - last 24 hr 06/27/18 06/27/18 06/27/18 11:47 12:08 12:16 WBC RBC Hgb Hct MCV MCH MCHC RDW Plt Count MPV Neut % (Auto) Lymph % (Auto) [place] % (Auto) Eos % (Auto) Baso % (Auto) Neut # (Auto) Lymph # (Auto) [place] # (Auto) Eos # (Auto) Baso # (Auto) PT INR APTT Puncture Site Fem/l pCO2 25 L pO2 342 H HCO3 12.7 L ABG pH 7.22 L ABG Total CO2 11.0 L ABG O2 Saturation 99.3 H ABG Base Excess -15.8 L Tristian Test Na ABG Potassium 4.1 A-a O2 Difference 340.0 Respiratory Index 1.0 Glucose 237 H Lactate 8.2 H* Mechanical Rate 14 FiO2 100.0 Tidal Volume 500 PEEP 5 Crit Value Called To Er dr jones Crit Value Called By Bryant herrera team leader/research psychologist Crit Value Read Back Y Blood Gas Notified Time 1215 Sodium 140 138.0 Potassium 4.1 Chloride 112 H 107.0 Carbon Dioxide 14 L Anion Gap 19 BUN 27 H Creatinine 1.8 H Est GFR ( Amer) 44 Est GFR (Non-Af Amer) 36 POC Glucose (mg/dL) 182 H Random Glucose 168 H D Calcium 8.7 Total Bilirubin 0.9 AST 82 H ALT 43 Alkaline Phosphatase 80 Troponin I < 0.0120 NT-Pro-B Natriuret Pep 88055 H Total Protein 6.5 Albumin 3.6 Globulin 3.0 Albumin/Globulin Ratio 1.2 Arterial Blood Potassium 4.1 06/27/18 06/27/18 12:55 12:55 WBC 11.1 H D RBC 3.44 L Hgb 10.5 L D Hct 34.3 L MCV 99.9 H D MCH 30.5 MCHC 30.5 L RDW 16.5 H Plt Count 108 L D MPV 9.7 Neut % (Auto) 52.0 Lymph % (Auto) 38.0 [place] % (Auto) 10.0 Eos % (Auto) 1.0 Baso % (Auto) 0.0 Neut # (Auto) 5.8 Lymph # (Auto) 4.2 [place] # (Auto) 1.1 H Eos # (Auto) 0.0 Baso # (Auto) 0.0 PT 18.5 H INR 1.7 APTT 45 H Puncture Site pCO2 pO2 HCO3 ABG pH ABG Total CO2 ABG O2 Saturation ABG Base Excess Tristian Test ABG Potassium A-a O2 Difference Respiratory Index Glucose Lactate Mechanical Rate FiO2 Tidal Volume PEEP Crit Value Called To Crit Value Called By Crit Value Read Back Blood Gas Notified Time Sodium Potassium Chloride Carbon Dioxide Anion Gap BUN Creatinine Est GFR ( Amer) Est GFR (Non-Af Amer) POC Glucose (mg/dL) Random Glucose Calcium Total Bilirubin AST ALT Alkaline Phosphatase Troponin I NT-Pro-B Natriuret Pep Total Protein Albumin Globulin Albumin/Globulin Ratio Arterial Blood Potassium Assessment & Plan (1) Anoxic brain injury Assessment and Plan: Imaging reviewed: CT Head without contrast (06/27/18): Stable unenhanced head CT including diffuse cerebral atrophy, chronic microangiopathy and chronic lobar infarction left frontal lobe. No suspicious acute intracranial findings identified in the interval. No significant interval change compared prior CT 11/08/2017. - f/u video EEG - f/u repeat CT Head without contrast after 24, pending patient is weaned off therapeutic hypothermia and stable enough to tolerate imaging - possibly for MRI Brain without contrast after extubation Patient is currently medically unstable after two cardiac arrests. He remains on 3 pressors and is not a candidate for sedation 2/2 persistent hypotension. d/w Dr. Nik Alcantara PGY-1 Status: Acute - Date & Time Date: 06/27/18 Time: 16:00
[2018-06-27] MEDS: Phenylephrine 30 MG in Sodium Chloride 0.9% 250 ML IV PRN ×2 (16:33→22:06)
[2018-06-27 16:42] LABS: VENOUS BLOOD GAS BASE EXCESS -16.2 mmol/L (0.0-2.0); VENOUS BLOOD GAS PCO2 56 mmHg (40-60); VENOUS BLOOD GAS PO2 45 mm/Hg (30-55); VENOUS BLOOD PH 7.03 (7.32-7.43)
[2018-06-27 17:46] LABS: RAPID PLASMA REAGIN REACTIVE (NONREACTIVE)
--- NOTE | 2018-06-27 17:51 | C.PDOC ---
History Of Present Illness 88 y/o male is brought in by ALS for cardiopulmonary arrest. As per prehospital care, patient became unresponsive in his car shortly after complaining of severe SOB. 911 was called, patient received internal defibrillation for pulseless v- tach. On arrival to ED, patient is still in arrest and ACLS protocol continued with return of spontaneous circulation. Chief Complaint (Nursing): Cardiac Arrest History Per: EMS Circumstances: Brought To ED By EMS Treatment Initiated Prior To MD Arrival: Yes: Intubation, Defibrillation Past Medical History Reviewed: Historical Data, Nursing Documentation, Vital Signs Vital Signs: Last Vital Signs Temp 94.4 F L 06/27/18 16:00 Pulse 79 06/27/18 17:00 Resp 24 06/27/18 16:25 BP 81/37 L 06/27/18 16:55 Pulse Ox 100 06/27/18 17:00 Surgical History: Pacemaker Family History: States: No Known Family Hx - Social History Hx Alcohol Use: No Hx Substance Use: No - Immunization History Hx Tetanus Toxoid Vaccination: No Hx Influenza Vaccination: Yes (03/2018) Hx Pneumococcal Vaccination: No Review Of Systems Review Of Systems: ROS cannot be obtained secondary to pt's inabilty to answer questions. Physical Exam - Physical Exam Appears: Non-toxic Skin: Warm, Dry Head: Atraumatic, Normacephalic Eye(s): bilateral: Normal Inspection, PERRL Oral Mucosa: Moist Throat: Other (ET tube in place) Cardiovascular: Rhythm Regular, No Murmur Respiratory: Other (coarse sounds bilaterally with mechanical defibrillation) Gastrointestinal/Abdominal: Bowel Sounds (normal), Soft, No Tenderness Extremity: No Pedal Edema, Other (pale) Neurological/Psych: Other (Unresponsive) ED Course And Treatment - Laboratory Results Result Diagrams: 06/27/18 12:55 06/27/18 12:08 Lab Results: Puncture Site Fem/l 06/27/18 12:16 pCO2 25 mm/Hg (35-45) L 06/27/18 12:16 pO2 45 mm/Hg (30-55) 06/27/18 16:38 HCO3 12.7 mmol/L (21-28) L 06/27/18 12:16 ABG pH 7.22 (7.35-7.45) L 06/27/18 12:16 ABG Total CO2 11.0 mmol/L (22-28) L 06/27/18 12:16 ABG O2 Saturation 99.3 % (95-98) H 06/27/18 12:16 ABG Base Excess -15.8 mmol/L (-2.0-3.0) L 06/27/18 12:16 [place] Test Na 06/27/18 12:16 ABG Potassium 4.1 mmol/L (3.6-5.2) 06/27/18 12:16 VBG pH 7.03 (7.32-7.43) L* 06/27/18 16:38 VBG pCO2 56 mmHg (40-60) 06/27/18 16:38 VBG HCO3 11.2 mmol/L 06/27/18 16:38 VBG Total CO2 16.5 mmol/L (22-28) L 06/27/18 16:38 VBG O2 Sat (Calc) 71.9 % (40-65) H 06/27/18 16:38 VBG Base Excess -16.2 mmol/L (0.0-2.0) L 06/27/18 16:38 VBG Potassium 4.3 mmol/L (3.6-5.2) 06/27/18 16:38 A-a O2 Difference 340.0 mm/Hg 06/27/18 12:16 Respiratory Index 1.0 06/27/18 12:16 Sodium 141.0 mmol/l (132-148) 06/27/18 16:38 Chloride 108.0 mmol/L (98-107) H 06/27/18 16:38 Glucose 256 mg/dl (75-110) H 06/27/18 16:38 Lactate 7.0 mmol/L (0.7-2.1) H* 06/27/18 16:38 Mechanical Rate 14 06/27/18 12:16 FiO2 100.0 % 06/27/18 16:38 Tidal Volume 500 06/27/18 12:16 PEEP 5 06/27/18 16:38 Crit Value Called To Dr brian 06/27/18 16:38 Crit Value Called By Sacha reyna 06/27/18 16:38 Crit Value Read Back Y 06/27/18 16:38 Blood Gas Notified Time 1642 06/27/18 16:38 PT 18.5 SECONDS (9.7-12.2) H 06/27/18 12:55 INR 1.7 06/27/18 12:55 APTT 45 SECONDS (21-34) H 06/27/18 12:55 Troponin I < 0.0120 ng/mL (0.00-0.120) 06/27/18 12:08 NT-Pro-B Natriuret Pep 56235 pg/mL (0-900) H 06/27/18 12:08 Total Bilirubin 0.9 mg/dL (0.2-1.3) 06/27/18 12:08 AST 82 U/L (17-59) H 06/27/18 12:08 ALT 43 U/L (21-72) 06/27/18 12:08 Alkaline Phosphatase 80 U/L (38-126) 06/27/18 12:08 Total Protein 6.5 g/dL (6.3-8.3) 06/27/18 12:08 Albumin 3.6 g/dL (3.5-5.0) 06/27/18 12:08 Globulin 3.0 gm/dL (2.2-3.9) 06/27/18 12:08 Albumin/Globulin Ratio 1.2 (1.0-2.1) 06/27/18 12:08 ECG: Interpreted By Me, Viewed By Me Interpretation Of ECG: Ventricular paced rhythm Rate From EC O2 Sat by Pulse Oximetry: 100 (RA) Pulse Ox Interpretation: Normal - Other Rad CXR X-Ray: Read By Radiologist Interpretation: FINDINGS: LUNGS: Endotracheal tube deployed, terminating 3 cm above the don. AICD/pacemaker reiterated. Contusion is suggested at the right chest wall and/or lateral right lung left chest grossly clear. PLEURA: Limited right lateral pneumothorax is likely present, less than 10 percent. No left pneumothorax. Trace right pleural effusion evident. None at the left. CARDIOVASCULAR: Calcific atherosclerotic changes are seen related to the tho racic aorta. AICD/pacemaker reiterated with external pacemaker now placed. Stable cardiomegaly. No pulmonary vascular congestion. OSSEOUS STRUCTURES: Multiple right lateral rib fractures including the right 4th, 5th, 6th and 7th ribs. VISUALIZED UPPER ABDOMEN: Normal. OTHER FINDINGS: None. IMPRESSION: Multiple right rib fractures identified including right 4th, 5th, 6th and 7th ribs with associated trace right pneumothorax and localized chest wall/pulmonary contusion. Left chest appears clear. Cardiomegaly without pulmonary vascular congestion, stable. ET tube in good apparent position with prior AICD/pacemaker unchanged. Medical Decision Making Medical Decision Making: Plan: --ABG --EKG --Labs --Chest XR --UA --Levophed Spoke to Dr. Brian, instant potato processor conservation scientist, who accepts patient to ICU. Spoke to Dr. Cuevas, admitted patient to his service. Disposition - Disposition Disposition: HOSPITALIZED Disposition Time: 12:45 Condition: CRITICAL - Clinical Impression Clinical Impression: Cardiac arrest Critical Care Time - Critical Care Note Total Time (in mins): 90 Documented critical care: time excludes all time spent performing seperately billable procedures. - Scribe Statement The provider has reviewed the documentation as recorded by the Andrewibandry Chacon Provider Attestation: All medical record entries made by the Scribe were at my direction and personally dictated by me. I have reviewed the chart and agree that the record accurately reflects my personal performance of the history, physical exam, medical decision making, and the department course for this patient. I have also personally directed, reviewed, and agree with the discharge instructions and disposition.
[2018-06-27 18:02] LABS: HEPATITIS B SURFACE AG Negative (NEGATIVE)
[2018-06-27 18:07] LABS: HEPATITIS B CORE AB NEGATIVE (NEGATIVE)
[2018-06-27 18:19] LABS: HEPATITIS C ANTIBODY NEGATIVE (NEGATIVE)
[2018-06-27 19:01] LABS: HEPATITIS A IGM NEGATIVE (NEGATIVE)
[2018-06-27 20:45] LABS: CK-MB 11.9 ng/mL (0.0-3.38); TROPONIN I 0.521 ng/mL (0.00-0.120)
[2018-06-27 21:16] LABS: ALB/GLOB RATIO 1.2 (1.0-2.1); ALBUMIN 3.1 g/dL (3.5-5.0); CALCIUM 7.4 mg/dl (8.6-10.4)
[2018-06-27 21:24] VITALS: PULSE 60
--- NOTE | 2018-06-27 22:47 | CARD ---
APPROVED REPORT Date of service: 06/27/2018 EXAM: Two-dimensional and M-mode echocardiogram with Doppler and color Doppler. Other Information Quality : TDSRhythm : INDICATION 2D DIMENSIONS IVSd1.2 (0.7-1.1cm)LVDd3.9 (3.9-5.9cm) LVOT Diameter2.3 (1.8-2.4cm)PWd1.1 (0.7-1.1cm) LA Gglwaw94 (18-58mL)LVDs3.2 (2.5-4.0cm) FS (%) 19.3 %LVEF (%)45.0 (>50%) LVEF (Steinberg's)45 % M-Mode DIMENSIONS Left Atrium (MM)4.27 (2.5-4.0cm)IVSd0.92 (0.7-1.1cm) Aortic Root3.33 (2.2-3.7cm)LVDd5.00 (4.0-5.6cm) Aortic Cusp Exc.0.79 (1.5-2.0cm)PWd1.14 (0.7-1.1cm) FS (%) 23 %LVDs3.87 (2.0-3.8cm) LVEF (%)45 (>50%) Aortic Valve AoV Peak Qzvfevot853.6cm/sAoV VTI27.3cmAO Peak GR.9mmHg LVOT Peak Bjmpprud42.2cm/sLVOT VTI12.59cmAO Mean GR.6mmHg JOJO (VMAX)1.57xn3BFK (VTI)1.90cm2 Mitral Valve E/A ratio0.1LABI858.36 cm/s TDI E/Lateral E'0.0E/Medial E'0.0 Tricuspid Valve TR Peak Refntxpk584qr/sTR Peak Gr.19qgKwGDXF08ygGz LEFT VENTRICLE The left ventricle is normal size. There is normal left ventricular wall thickness. Left ventricle systolic function is mildly impaired. The Ejection Fraction is 45-50%. There is mildly global hypokinesis of the left ventricle. The left ventricular diastolic function is normal. RIGHT VENTRICLE The right ventricle is normal size. There is normal right ventricular wall thickness. Systolic function is mildly reduced. There is a pacemaker lead in the right ventricle. ATRIA The left atrium is mildly dilated. The right atrium size is normal. The interatrial septum is intact with no evidence for an atrial septal defect. AORTIC VALVE The aortic valve is normal in structure. There is trace aortic regurgitation. There is no aortic valvular stenosis. MITRAL VALVE The mitral valve is normal in structure. There is no evidence of mitral valve prolapse. There is no mitral valve stenosis. Mitral regurgitation is mild. TRICUSPID VALVE The tricuspid valve is normal in structure. There is mild tricuspid regurgitation. Right ventricular systolic pressure is estimated at 40-50 mmHg. There is mild-moderate pulmonary hypertension. PULMONIC VALVE The pulmonic valve is not well visualized. There is mild pulmonic valvular regurgitation. GREAT VESSELS The aortic root is normal in size. PERICARDIAL EFFUSION There is no significant pericardial effusion. <Conclusion> Left ventricle systolic function is mildly impaired. The Ejection Fraction is 45-50%. There is trace aortic regurgitation. Mitral regurgitation is mild. There is mild tricuspid regurgitation. There is mild-moderate pulmonary hypertension. There is mild pulmonic valvular regurgitation.
--- NOTE | 2018-06-28 00:50 | CP.PCM.PRO ---
Pronouncement of Note - Clinical Findings Physical Exam: No Response Verbal/Painful Stimuli, Absent Peripheral Puls es{Carotid & Femoral}, Absent Heart & Breath Sounds, No Pupillary Light Reflex, No Corneal Reflex, Pupils Fixed & Dilated, Absence of Vital Signs - Pronouncement Time Time of Pronouncement of : 12:42 - Notifications Pronouncement Notifications: Family Notified, Atending Notified Floor Broker Notified: Yes - Autopsy Autopsy Requested: No
[2018-06-28 00:52] VITALS: BP 0/0
[2018-06-28 00:54] VITALS: TEMP 90; O2SAT 0
[2018-06-28 00:55] VITALS: RESP 24
--- NOTE | 2018-06-28 01:55 | CP.PCM.PRO ---
Pronouncement of Note - Clinical Findings Physical Exam: No Response Verbal/Painful Stimuli, Absent Peripheral Puls es{Carotid & Femoral}, Absent Heart & Breath Sounds, No Pupillary Light Reflex, No Corneal Reflex, Pupils Fixed & Dilated, Absence of Vital Signs - Notifications Pronouncement Notifications: Family Notified, Atending Notified Evaluation Manager Notified: Yes (Spoke to Film Cleaner Juancarlos who released patient at 2:18) - [place] [id number]
[2018-06-28] MEDS ORDERED: Acetaminophen IV 1,000 MG in Premixed IV 1 EA IV PRN (03:00)
--- NOTE | 2018-06-28 07:18 | CP.PCM.DIS ---
Provider - Provider Date of Admission: 06/27/18 12:57 Attending physician: Sadi Cuevas DO Consults: 06/27/18 13:54 Palliative Care Consult Routine Comment: Consulting Provider: Tina Art Physician Instructions: Reason For Exam: discuss goals of care 06/27/18 14:03 Cardiology Consult Stat Comment: Consulting Provider: David Mooney Consulting Physician: David Mooney Reason for Consult: s/p cardiac arrest, hx AICD/pacemaker, pt of Dr. Perez's 06/27/18 14:04 Neurology Consult Stat Comment: Consulting Provider: Juvencio Zaragoza Consulting Physician: Juvencio Zaragoza Reason for Consult: s/p cardiac arrest, hx CVA, please eval 06/27/18 14:43 Nursing Referral for Palliative Care Routine Comment: Physician Instructions: Reason For Exam: S/P cardiac arrest Time Spent in preparation of Discharge (in minutes): 45 Diagnosis - Discharge Diagnosis (1) Cardiac arrest Status: Acute Hospital Course - Lab Results Lab Results: Most Recent Lab Values WBC 11.1 K/uL (4.8-10.8) H D 06/27/18 12:55 RBC 3.44 Mil/uL (4.40-5.90) L 06/27/18 12:55 Hgb 10.5 g/dL (12.0-18.0) L D 06/27/18 12:55 Hct 34.3 % (35.0-51.0) L 06/27/18 12:55 MCV 99.9 fL (80.0-94.0) H D 06/27/18 12:55 MCH 30.5 pg (27.0-31.0) 06/27/18 12:55 MCHC 30.5 g/dL (33.0-37.0) L 06/27/18 12:55 RDW 16.5 % (11.5-14.5) H 06/27/18 12:55 Plt Count 108 K/uL (130-400) L D 06/27/18 12:55 MPV 9.7 fL (7.2-11.7) 06/27/18 12:55 Neut % (Auto) 52.0 % (50.0-75.0) 06/27/18 12:55 Lymph % (Auto) 38.0 % (20.0-40.0) 06/27/18 12:55 [place] % (Auto) 10.0 % (0.0-10.0) 06/27/18 12:55 Eos % (Auto) 1.0 % (0.0-4.0) 06/27/18 12:55 Baso % (Auto) 0.0 % (0.0-2.0) 06/27/18 12:55 Neut # (Auto) 5.8 K/uL (1.8-7.0) 06/27/18 12:55 Lymph # (Auto) 4.2 K/uL (1.0-4.3) 06/27/18 12:55 [place] # (Auto) 1.1 K/uL (0.0-0.8) H 06/27/18 12:55 Eos # (Auto) 0.0 K/uL (0.0-0.7) 06/27/18 12:55 Baso # (Auto) 0.0 K/uL (0.0-0.2) 06/27/18 12:55 PT 18.5 SECONDS (9.7-12.2) H 06/27/18 12:55 INR 1.7 06/27/18 12:55 APTT 45 SECONDS (21-34) H 06/27/18 12:55 Puncture Site Fem/l 06/27/18 12:16 pCO2 25 mm/Hg (35-45) L 06/27/18 12:16 pO2 45 mm/Hg (30-55) 06/27/18 16:38 HCO3 12.7 mmol/L (21-28) L 06/27/18 12:16 ABG pH 7.22 (7.35-7.45) L 06/27/18 12:16 ABG Total CO2 11.0 mmol/L (22-28) L 06/27/18 12:16 ABG O2 Saturation 99.3 % (95-98) H 06/27/18 12:16 ABG Base Excess -15.8 mmol/L (-2.0-3.0) L 06/27/18 12:16 [place] Test Na 06/27/18 12:16 ABG Potassium 4.1 mmol/L (3.6-5.2) 06/27/18 12:16 VBG pH 7.03 (7.32-7.43) L* 06/27/18 16:38 VBG pCO2 56 mmHg (40-60) 06/27/18 16:38 VBG HCO3 11.2 mmol/L 06/27/18 16:38 VBG Total CO2 16.5 mmol/L (22-28) L 06/27/18 16:38 VBG O2 Sat (Calc) 71.9 % (40-65) H 06/27/18 16:38 VBG Base Excess -16.2 mmol/L (0.0-2.0) L 06/27/18 16:38 VBG Potassium 4.3 mmol/L (3.6-5.2) 06/27/18 16:38 A-a O2 Difference 340.0 mm/Hg 06/27/18 12:16 Respiratory Index 1.0 06/27/18 12:16 Sodium 141.0 mmol/l (132-148) 06/27/18 16:38 Chloride 108.0 mmol/L (98-107) H 06/27/18 16:38 Glucose 256 mg/dl (75-110) H 06/27/18 16:38 Lactate 7.0 mmol/L (0.7-2.1) H* 06/27/18 16:38 Mechanical Rate 14 06/27/18 12:16 FiO2 100.0 % 06/27/18 16:38 Tidal Volume 500 06/27/18 12:16 PEEP 5 06/27/18 16:38 Crit Value Called To Dr brian 06/27/18 16:38 Crit Value Called By Sacha reyna 06/27/18 16:38 Crit Value Read Back Y 06/27/18 16:38 Blood Gas Notified Time 1642 06/27/18 16:38 Sodium 142 mmol/L (132-148) 06/27/18 20:56 Potassium 4.4 mmol/L (3.6-5.2) 06/27/18 20:56 Chloride 112 mmol/L (98-107) H 06/27/18 20:56 Carbon Dioxide 14 mmol/L (22-30) L 06/27/18 20:56 Anion Gap 19 (10-20) 06/27/18 20:56 BUN 27 mg/dL (9-20) H 06/27/18 20:56 Creatinine 1.8 mg/dL (0.8-1.5) H 06/27/18 20:56 Est GFR ( Amer) 44 06/27/18 20:56 Est GFR (Non-Af Amer) 36 06/27/18 20:56 POC Glucose (mg/dL) 182 mg/dL (65-110) H 06/27/18 11:47 Random Glucose 181 mg/dL (75-110) H 06/27/18 20:56 Calcium 7.4 mg/dl (8.6-10.4) L 06/27/18 20:56 Phosphorus 6.4 mg/dL (2.5-4.5) H 06/27/18 20:56 Magnesium 2.2 mg/dL (1.6-2.3) 06/27/18 20:56 Total Bilirubin 1.9 mg/dL (0.2-1.3) H 06/27/18 20:56 AST 159 U/L (17-59) H D 06/27/18 20:56 ALT 86 U/L (21-72) H D 06/27/18 20:56 Alkaline Phosphatase 71 U/L (38-126) 06/27/18 20:56 Total Creatine Kinase 644 U/L (55-170) H 06/27/18 20:06 CK-MB (Mass) 11.9 ng/mL (0.0-3.38) H 06/27/18 20:06 Troponin I 0.5210 ng/mL (0.00-0.120) H* 06/27/18 20:06 NT-Pro-B Natriuret Pep 72108 pg/mL (0-900) H 06/27/18 12:08 Total Protein 5.7 g/dL (6.3-8.3) L 06/27/18 20:56 Albumin 3.1 g/dL (3.5-5.0) L 06/27/18 20:56 Globulin 2.6 gm/dL (2.2-3.9) 06/27/18 20:56 Albumin/Globulin Ratio 1.2 (1.0-2.1) 06/27/18 20:56 Arterial Blood Potassium 4.1 mmol/L (3.6-5.2) 06/27/18 12:16 Venous Blood Potassium 4.3 mmol/L (3.6-5.2) 06/27/18 16:38 RPR Titer 1:2 (NONREACTIVE) H 06/27/18 17:00 RPR Reactive (NONREACTIVE) H 06/27/18 17:00 Hepatitis A IgM Ab Negative (NEGATIVE) 06/27/18 17:00 Hep Bs Antigen Negative (NEGATIVE) 06/27/18 17:00 Hep Bs Antibody Positive (NEGATIVE) 06/27/18 17:00 Hep B Core IgM Ab Negative (NEGATIVE) 06/27/18 17:00 Hepatitis C Antibody Negative (NEGATIVE) 06/27/18 17:00 HIV 1&2 Antibody Screen Negative (NEGATIVE) 06/27/18 23:57 - Hospital Course Hospital Course: As per family, patient woke up and looked very ill to them including shortness of breath, gasping for air - and the patient insisted on seeing his assistant customer service manager. When the family brought the patient to the assistant customer service manager he was seen and because of his breathing the assistant customer service manager urged the family that he needed to go to the hospital immediately. The family had only driven one or two minutes when they noticed he lost consciousness and stopped breathing and they pulled over and called for EMS. They report the nursery hand came immediately and started chest compressions and he required intubation. It seems that at some point during the ambulance transport he regained a pulse and blood pressure since the nursing staff in the ER explained he had a pulse and blood pressure on arrival - however shortly thereafter lost pulse and BP again and they again had to resume CPR. He was started on levophed as well as dopamine and amiodarone as he was observed to have episodes of ventricular tachycardia by the ER phsycian According to the Hetal she states the patient has a pacer/defibillator for the past 4 years and before that had another device for at least 9 years. The explains there is a history of prostate CA, history of CVA, she belie ves [place], CHF Patient was accepted to ICU. Code freeze was initiated. Family later designated patient DNR. Asystole was noted at 12:42am and I was called to pronounce the patient. Discharge Exam - Additional Findings Additional findings: Physical Exam: No Response Verbal/Painful Stimuli, Absent Peripheral Pulses{Carotid & Femoral}, Absent Heart & Breath Sounds, No Pupillary Light Reflex, No Corneal Reflex, Pupils Fixed & Dilated, Absence of Vital Signs Discharge Plan - Follow Up Plan Condition: CRITICAL Disposition: WITH WITHOUT AUTOPSY
--- NOTE | 2018-06-29 00:02 | CP.PCM.CON ---
History of Present Illness - History of Present Illness History of Present Illness: Reason for Consultation: cardiac arrest This is a 88 y o male with PMhx CHF, HTN, HLD, CVA (with resolvement of symptoms), s/p pacemaker (recently replaced 4 y ago), b/l carotid stenosis, hypothryoidism, prostate ca s/p tx in 2007, who presented to the ED [facility] s/p cardiac arrest. Most of history obtained from family due to pts current clinical status. Per family, pt was not feeling well when he woke up this am, stated he felt short of breath, and was slurring his speech. Pt stated at time that he felt fine and went with family to his Cardiologists office, Dr. Perez for his scheduled appt. Family states that Dr. Perez examined pt and instructed that he go straight to the ED for further treatment. While pts family was driv ing pt to ED, pt suddenly became unresponsive in back seat of car. Pts family immediately pulled car to side of road and called 911. EMS came within 1 min to scene and initiated CPR and gave 2 shocks in field. Pt additionally arrested as per staff in ED after arrival, and ROSC was achieved again. Pt received epi x2, amiodarone x2, shock administered x4. On my exam in the ED pt was in A-fib on cardiac rhythm strip. Further ROS unobtainable due to pts current clinical status. Central line placed in ED. Pt admitted to ICU for further monitoring. Per family, they report that pt had cardiac arrest 2 years ago and was admitted to [facility] for 4 days for work-up, was told the reason for the episode was due to his heart failure. PMhx: as noted above PSurgHx: s/p pacemaker placement (recently replaced 4 y ago), s/p seeding for prostate ca Allergies: NKDA Home meds: Amiodarone 200 mg daily, Dutasteride 0.5 mg daily, Tamsulosin 0.4 mg daily, Lasix 20 mg daily, Pravastatin 40 mg daily, Synthroid 50 mcg daily, Entresto 24-26 mg daily, Niacin 1000 mg daily, Toprol XL 50 mg daily Fam hx: denies Soc hx: denies smoking, EtOH or illicit drug use PMD: Dr. Chambers Primary Registered Representative: Dr. Perez Pharmacy: [facility] Pharmacy, [address] [place] Present on Admission - Present on Admission Any Indicators Present on Admission: No History of DVT/PE: No History of Uncontrolled Diabetes: No Urinary Catheter: No Decubitus Ulcer Present: No History Surgical Site Infection Following: None Review of Systems - Review of Systems Systems not reviewed;Unavailable: Intubated Past Patient History - Past Social History Smoking Status: Never Smoked - CARDIAC Hx Heart Attack: Yes Hx Pacemaker: Yes - GENITOURINARY/GYNECOLOGICAL Hx Prostate Cancer: Yes - PSYCHIATRIC Hx Substance Use: No - SURGICAL HISTORY Hx Surgeries: Yes Other/Comment: PPM and Prostate Seed - ANESTHESIA Hx Anesthesia: Yes Hx Anesthesia Reactions: No Meds Allergies/Adverse Reactions: Allergies Allergy/AdvReac Type Severity Reaction Status Date / Time No Known Allergies Allergy Verified 06/27/18 11:47 Physical Exam - Constitutional Appears: Non-toxic, No Acute Distress - Head Exam Head Exam: ATRAUMATIC, NORMOCEPHALIC - Eye Exam Eye Exam: Normal appearance, PERRL - ENT Exam ENT Exam: Mucous Membranes Moist - Respiratory Exam Respiratory Exam: Clear to Auscultation Bilateral, NORMAL BREATHING PATTERN. absent: Rales, Rhonchi, Wheezes - Cardiovascular Exam Cardiovascular Exam: Irregular Rhythm, +S1, +S2. absent: Gallop, Rubs, Systolic Murmur - GI/Abdominal Exam GI & Abdominal Exam: Normal Bowel Sounds, Soft. absent: Distended, Organomegaly, Tenderness - Extremities Exam Extremities exam: Positive for: normal capillary refill, pedal pulses present. Negative for: pedal edema - Neurological Exam Additional comments: Intubated - Skin Skin Exam: Dry, Intact, Warm Results - Vital Signs Recent Vital Signs: Last Vital Signs Temp Pulse 61 06/27/18 12:11 Resp BP Pulse Ox - Labs Result Diagrams: 06/27/18 12:55 06/27/18 12:08 Labs: Laboratory Results - last 24 hr 06/27/18 06/27/18 06/27/18 11:47 12:08 12:16 WBC RBC Hgb Hct MCV MCH MCHC RDW Plt Count MPV Neut % (Auto) Lymph % (Auto) [facility] % (Auto) Eos % (Auto) Baso % (Auto) Neut # (Auto) Lymph # (Auto) [facility] # (Auto) Eos # (Auto) Baso # (Auto) PT INR APTT Puncture Site Fem/l pCO2 25 L pO2 342 H HCO3 12.7 L ABG pH 7.22 L ABG Total CO2 11.0 L ABG O2 Saturation 99.3 H ABG Base Excess -15.8 L Tr[place] Test Na ABG Potassium 4.1 A-a O2 Difference 340.0 Respiratory Index 1.0 Glucose 237 H Lactate 8.2 H* Mechanical Rate 14 FiO2 100.0 Tidal Volume 500 PEEP 5 Crit Value Called To Er dr jones Crit Value Called By Bryant herrera dredge master Crit Value Read Back Y Blood Gas Notified Time 1215 Sodium 140 138.0 Potassium 4.1 Chloride 112 H 107.0 Carbon Dioxide 14 L Anion Gap 19 BUN 27 H Creatinine 1.8 H Est GFR ( Amer) 44 Est GFR (Non-Af Amer) 36 POC Glucose (mg/dL) 182 H Random Glucose 168 H D Calcium 8.7 Total Bilirubin 0.9 AST 82 H ALT 43 Alkaline Phosphatase 80 Troponin I < 0.0120 NT-Pro-B Natriuret Pep 77008 H Total Protein 6.5 Albumin 3.6 Globulin 3.0 Albumin/Globulin Ratio 1.2 Arterial Blood Potassium 4.1 06/27/18 06/27/18 12:55 12:55 WBC 11.1 H D RBC 3.44 L Hgb 10.5 L D Hct 34.3 L MCV 99.9 H D MCH 30.5 MCHC 30.5 L RDW 16.5 H Plt Count 108 L D MPV 9.7 Neut % (Auto) 52.0 Lymph % (Auto) 38.0 [facility] % (Auto) 10.0 Eos % (Auto) 1.0 Baso % (Auto) 0.0 Neut # (Auto) 5.8 Lymph # (Auto) 4.2 [facility] # (Auto) 1.1 H Eos # (Auto) 0.0 Baso # (Auto) 0.0 PT 18.5 H INR 1.7 APTT 45 H Puncture Site pCO2 pO2 HCO3 ABG pH ABG Total CO2 ABG O2 Saturation ABG Base Excess Tristian Test ABG Potassium A-a O2 Difference Respiratory Index Glucose Lactate Mechanical Rate FiO2 Tidal Volume PEEP Crit Value Called To Crit Value Called By Crit Value Read Back Blood Gas Notified Time Sodium Potassium Chloride Carbon Dioxide Anion Gap BUN Creatinine Est GFR ( Amer) Est GFR (Non-Af Amer) POC Glucose (mg/dL) Random Glucose Calcium Total Bilirubin AST ALT Alkaline Phosphatase Troponin I NT-Pro-B Natriuret Pep Total Protein Albumin Globulin Albumin/Globulin Ratio Arterial Blood Potassium Assessment & Plan - Assessment and Plan (Free Text) Assessment: This is a 88 y o male with PMhx CHF, HTN, HLD, CVA (with resolvement of symptoms), s/p pacemaker (recently replaced 4 y ago), b/l carotid stenosis, hypothryoidism, prostate ca s/p tx in 2007, who presented to the ED [facility] s/p cardiac arrest. Admitted to ICU for further monitoring. ABG on admission demonstrating metabolic acidosis, lactate elevated. Cardiology and Neurology consulted. CT head on admission demonstrates no acute findings. Plan to initiate Code Freeze protocol. Plan: S/p Cardiac Arrest -R/o arrhythmia, heart failure, MO, hypovolemia, valvular disease as etiologies for presentation -Acidotic on admission, started on Bicarb drip -Code Freeze protocol -Pt hypotensive, A-fib noted on cardiac surgeon after ROSC achieved -Currently intubated, sedation held 2/2 hypotension -Currently on Levophed, Phenylephrine and Dopamine drips -Amiodarone drip -Neg trop on admission, repeat ROMIs pending -Cardiology (Dr. Mooney) consulted, recs appreciated -S/p central line placement -BNP elevated on admission -Stat Echo ordered, f/u results -Faxed in request for pt's medical records from [facility], consent obtained from pt's at bedside Hx CHF -Home med Entresto held on admission 2/2 hypotension -BNP elevated on admission -CXR on admission: Multiple R rib fractures identified inclulding right 4th, 5th, 6th and 7th ribs with associated trace R pneumothorax and localized chest wall/pulmonary contusion. L chest appears clear. Cardiomegaly without pulmonary vascular congestion, stable. ET tube in good apparent position with prior AICD/pacemaker unchanged. 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 No suspicious acute intracranial findings identified in the interval. No significant interval change compared to prior CT 11/08/18. -Neurology, Dr. Zaragoza, consulted, recs appreciated -Video EEG ordered -Repeat head CT tomorrow after completion of Code Freeze PPX: -SCD -GI ppx not indicated at this time -Full Code status -Palliative Care consulted re. goals of care discussion, recs appreciated. Past Patient History - Past Social History Smoking Status: Never Smoked - CARDIAC Hx Pacemaker: Yes - PULMONARY Hx Pneumonia: Yes - NEUROLOGICAL HX Cerebrovascular Accident: Yes (2016) - MUSCULOSKELETAL/RHEUMATOLOGICAL Hx Falls: Yes - GENITOURINARY/GYNECOLOGICAL Hx Prostate Cancer: Yes - PSYCHIATRIC Hx Substance Use: No - SURGICAL HISTORY Hx Surgeries: Yes Other/Comment: PPM and Prostate Seed - ANESTHESIA Hx Anesthesia: Yes Hx Anesthesia Reactions: No Hx Malignant Hyperthermia: No Has any member of the family had a problem w/ anesthesia?: No Meds Allergies/Adverse Reactions: Allergies Allergy/AdvReac Type Severity Reaction Status Date / Time No Known Allergies Allergy Verified 06/27/18 11:47 Results - Vital Signs Recent Vital Signs: Last Vital Signs Temp 90 F L 06/28/18 00:00 Pulse 60 06/28/18 00:00 Resp 24 06/28/18 00:00 BP 0/0 L 06/28/18 00:00 Pulse Ox 0 L 06/28/18 00:00 - Labs Result Diagrams: 06/27/18 12:55 06/27/18 20:56 Labs: Laboratory Results - last 24 hr 06/27/18 23:57 HIV 1&2 Antibody Screen Negative
== END 2018-06-28 00:42 | DRG 297 ==
LOC: C.ER 11:45 → C.9I 12:57
PROVIDERS: ADMIT Hospitalist; ATTEND Hospitalist
PROC: 5A1935Z Respiratory Ventilation, Less than 24 Consecutive Hours (ICD-10-PCS; principal; 2018-06-27)
PROC: 6A4Z0ZZ Hypothermia, Single (ICD-10-PCS; 2018-06-27)
PROC: 5A12012 Performance of Cardiac Output, Single, Manual (ICD-10-PCS; 2018-06-27)
DX: I46.9 Cardiac arrest, cause unspecified (principal); G93.1 Anoxic brain damage, not elsewhere classified; E87.2 Acidosis; J93.9 Pneumothorax, unspecified; M84.48XA Pathological fracture, other site, initial encounter for fracture; I47.2 Ventricular tachycardia; I11.0 Hypertensive heart disease with heart failure; I50.9 Heart failure, unspecified; I35.0 Nonrheumatic aortic (valve) stenosis; I48.91 Unspecified atrial fibrillation; I65.23 Occlusion and stenosis of bilateral carotid arteries; E78.5 Hyperlipidemia, unspecified; I73.9 Peripheral vascular disease, unspecified; E03.9 Hypothyroidism, unspecified; Z66 Do not resuscitate; Z95.0 Presence of cardiac pacemaker; I25.2 Old myocardial infarction; Z86.73 Personal history of transient ischemic attack (TIA), and cerebral infarction without residual deficits; Z85.46 Personal history of malignant neoplasm of prostate; Z79.890 Hormone replacement therapy; Z79.899 Other long term (current) drug therapy; Z87.01 Personal history of pneumonia (recurrent); Z91.81 History of falling; Z95.810 Presence of automatic (implantable) cardiac defibrillator